=== PATIENT | female | born 1965 | race American Indian/Alaskan Native ===

== ENCOUNTER 2017-01-20 08:21 | Day surgery (SDC) | payer OTHER ==
[2017-01-20] MEDS ORDERED: Lactated Ringer's 500 ML IV ONE (10:10)
[2017-01-20] MEDS ORDERED: Propofol 10 mg/ml Inj (20 ML) ONE (10:51)
[2017-01-20 12:02] VITALS: BP 108/58; TEMP 97
[2017-01-20 12:04] VITALS: PULSE 56; RESP 14; O2SAT 100
== END 2017-01-20 14:09 | disposition home or self-care (01) ==
LOC: H.ENDO 08:21
PROVIDERS: ATTEND Internal Medicine Gastroenterology
DX: Z12.11 Encounter for screening for malignant neoplasm of colon (principal); K64.8 Other hemorrhoids; K57.30 Diverticulosis of large intestine without perforation or abscess without bleeding; G47.30 Sleep apnea, unspecified; K30 Functional dyspepsia; K31.9 Disease of stomach and duodenum, unspecified; K44.9 Diaphragmatic hernia without obstruction or gangrene

== ENCOUNTER 2017-10-29 09:51 | Day surgery (SDC) | payer OTHER ==
[2017-10-29] MEDS ORDERED: Lactated Ringer's 1,000 ML IV ONE (10:13)
[2017-10-29] MEDS ORDERED: Propofol 10 mg/ml Inj (20 ML) ONE (10:57)
[2017-10-29 11:25] VITALS: TEMP 97
[2017-10-29 11:33] VITALS: BP 123/76; PULSE 67; RESP 18; O2SAT 99
== END 2017-10-29 11:44 | disposition home or self-care (01) ==
LOC: H.ENDO 09:51
PROVIDERS: ATTEND Internal Medicine Gastroenterology
DX: K57.92 Diverticulitis of intestine, part unspecified, without perforation or abscess without bleeding (principal); K64.8 Other hemorrhoids
CPT/HCPCS: 45378; J2704; J7120